=== PATIENT | female | born 1990 | race Caucasian/White ===

== ENCOUNTER 2016-10-13 02:40 | Emergency (ER) | payer MEDICAID ==
[~2016-10-13 02:40] MED LIST: CIPRO500 MG PO; CIPROFLOXACIN500 MG PO; FAMOTIDINE40 MG PO; HYDROCODONE/ACE1 TA2 PO; LAC PO
[2016-10-13 04:17] VITALS: BP 107/55
== END 2016-10-13 04:17 | disposition home or self-care (01) ==
LOC: ED 02:40
DX: L50.9 Urticaria, unspecified (principal)
CPT/HCPCS: J0171; J7512; Q0163

== ENCOUNTER 2018-04-01 23:41 | Emergency (ER) | payer MEDICAID ==
[~2018-04-01] VITALS: Ht 160 cm; Wt 70.3 kg
[2018-04-02] VITALS: Ht 160 cm; Wt 70.3 kg
[2018-04-02 01:51] LABS: microscopic required? NO
[2018-04-02 02:09] LABS: UA SPECIFIC GRAVITY 1.025 (1.005-1.035); urine erythrocyte NEGATIVE (NEGATIVE)
[2018-04-02 02:50] VITALS: BP 121/74
== END 2018-04-02 03:27 | disposition home or self-care (01) ==
LOC: ED 23:41
PROVIDERS: Emergency Medicine
DX: R10.9 Unspecified abdominal pain (principal); R11.0 Nausea; R31.9 Hematuria, unspecified
CPT/HCPCS: J1885

== ENCOUNTER 2020-03-17 09:06 | Emergency (ER) | payer MEDICAID ==
[~2020-03-17] VITALS: Ht 165.1 cm; Wt 70.3 kg
[2020-03-17 09:19] VITALS: BP 107/64; Ht 165.1 cm; Wt 70.3 kg
== END 2020-03-17 10:24 | disposition home or self-care (01) ==
LOC: ED 09:06
DX: N39.0 Urinary tract infection, site not specified (principal)
CPT/HCPCS: J0696; Q0162